=== PATIENT | female | born 1960 | race Caucasian/White ===

== ENCOUNTER 2021-01-24 14:28 | Emergency (ER) | payer BC ==
[2021-01-24] MEDS ORDERED: Hydromorphone 1 mg/ml Injection ONE (14:34)
[2021-01-24] MEDS ORDERED: XYLOCAINE 1% HCL 20 ML MDV ONE (14:34)
[2021-01-24] MEDS ORDERED: ZOFRAN ODT 4 MG ONE (14:34)
[2021-01-24] MEDS ORDERED: Hydromorphone 1 mg/ml Injection IV ONE (14:36)
--- NOTE | 2021-01-24 14:36 | ERPHSYRPT ---
- History of Present Illness Time Seen by Provider: 01/24/21 14:33 Source: patient Exam Limitations: no limitations Physician History: This is a right-handed 60-year-old white female who presents with obvious dislocation of the left middle finger. Patient was walking her dog was pulled she fell and injured her left middle and has pain in the left ring finger Occurred: just prior to arrival Reason for Fall: fell from standing pos (Walking her dog) Injuries/Pain Location: upper extremity (Left hand) Loss of Consciousness: no loss of consciousness Quality: aching Severity of Pain-Max: moderate Severity of Pain-Current: moderate Modifying Factors: Improves With: movement Associated Symptoms (Fall): extremity injury (left middle finger and ring finger) Allergies/Adverse Reactions: doxycycline Allergy (Verified 01/24/21 14:46) Penicillins Allergy (Verified 01/24/21 14:46) Sulfa (Sulfonamide Antibiotics) Allergy (Verified 01/24/21 14:46) Hx Tetanus, Diphtheria Vaccination/Date Given: No Hx Influenza Vaccination/Date Given: Yes Hx Pneumococcal Vaccination/Date Given: No Travel Risk - International Travel Have you traveled outside of the country in past 3 weeks: No - Coronavirus Screening Are you exhibiting any of the following symptoms?: No Close contact with a COVID-19 positive Pt in past 14-21 Days: No - Review of Systems Constitutional: No Symptoms Eyes: No Symptoms Ears, Nose, & Throat: No Symptoms Respiratory: No Symptoms Cardiac: No Symptoms Abdominal/Gastrointestinal: No Symptoms Genitourinary Symptoms: No Symptoms Musculoskeletal: Deformity (left middle finger), Fall, Injury Skin: Other (abrasions) Neurological: No Symptoms Psychological: No Symptoms Endocrine: No Symptoms Hematologic/Lymphatic: No Symptoms Immunological/Allergic: No Symptoms All Other Systems: Reviewed and Negative - Past Medical History Pertinent Past Medical History: No - Past Surgical History Past Surgical History: Yes Other Surgical History: cataracts - Social History Smoking Status: Never smoker Exposure to second hand smoke: No Drug Use: none Patient Lives Alone: No - Nursing Vital Signs Nursing Vital Signs: Initial Vital Signs Temperature 99.7 F 01/24/21 14:49 Pulse Rate 117 H 01/24/21 14:49 Respiratory Rate 21 01/24/21 14:49 Blood Pressure 155/81 01/24/21 14:49 O2 Sat by Pulse Oximetry 100 01/24/21 14:49 Pain Scale Pain Intensity 10 - Celso Coma Score Best Eye Response (Celso): (4) open spontaneously - Physical Exam General Appearance: no apparent distress, alert Head Injury: no evidence of injury Eye Exam: PERRL/EOMI, eyes nml inspection ENT Exam: airway nml Neck Exam: supple, trachea midline, full range of motion, normal alignment, normal inspection Respiratory/Chest Exam: No chest tenderness, No respiratory distress Cardiovascular Exam: normal heart sounds, regular rate/rhythm, normal peripheral pulses Gastrointestinal Exam: soft, normal bowel sounds, No tenderness Rectal Exam: not done Back Exam: normal inspection, normal range of motion, No CVA tenderness, No vertebral tenderness Extremity Exam: deformities (left middle finger abrasions), evidence of injury Neurologic Exam: alert, oriented x 3, cooperative, 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 Left ring finger) SpO2 Interpretation: normal O2 Delivery: Room Air - Course Nursing assessment & vital signs reviewed: Yes Ordered Tests: Active Orders 24 hr Category Date Time Status IV Insertion STAT Care 01/24/21 14:36 Active Wound Care STAT Care 01/24/21 14:55 Active HAND (2 VIEW) Routine Exams 01/24/21 15:07 Taken HAND (2 VIEW) Stat Exams 01/24/21 14:45 Completed Medication Summary Discontinued Medications Generic Name Dose Route Start Last Admin Trade Name Freq PRN Reason Stop Dose Admin Bacitracin Zinc 0.9 gm 01/24/21 14:56 01/24/21 15:08 Baciguent Packet TP 01/24/21 14:57 0.9 gm STAT ONE Administration Bacitracin Zinc Confirm 01/24/21 15:08 Baciguent Packet Administered 01/24/21 15:09 Dose 1 gm .ROUTE .STK-MED ONE Cephalexin HCl 500 mg 01/24/21 14:55 01/24/21 15:06 Keflex 500 Mg PO 01/24/21 14:56 500 mg STAT ONE Administration Cephalexin HCl Confirm 01/24/21 15:05 Keflex 500 Mg Administered 01/24/21 15:06 Dose 500 mg .ROUTE .STK-MED ONE Diphtheria/Tetanus/Acell Pertussis 0.5 ml 01/24/21 14:55 01/24/21 15:06 Adacel Vial IM 01/24/21 14:56 0.5 ml .ONCE ONE Administration Diphtheria/Tetanus/Acell Pertussis Confirm 01/24/21 15:05 Adacel Vial Administered 01/24/21 15:06 Dose 0.5 ml IM .STK-MED ONE Hydromorphone HCl Confirm 01/24/21 14:34 Hydromorphone 1 Mg/Ml Injection Administered 01/24/21 14:35 Dose 1 mg .ROUTE .STK-MED ONE Hydromorphone HCl 1 mg 01/24/21 14:36 01/24/21 15:03 Hydromorphone 1 Mg/Ml Injection IV 01/24/21 14:37 1 mg STAT ONE Administration Lidocaine HCl Confirm 01/24/21 14:34 Xylocaine 1% Hcl 20 Ml Mdv Administered 01/24/21 14:35 Dose 5 ml .ROUTE .STK-MED ONE Lidocaine HCl 5 ml 01/24/21 14:37 01/24/21 15:03 Xylocaine 1% Hcl 20 Ml Mdv IJ 01/24/21 14:38 5 ml STAT ONE Administration Ondansetron HCl Confirm 01/24/21 14:34 Zofran Odt 4 Mg Administered 01/24/21 14:35 Dose 4 mg .ROUTE .STK-MED ONE Ondansetron HCl 4 mg 01/24/21 14:37 01/24/21 15:03 Zofran Odt 4 Mg PO 01/24/21 14:38 4 mg STAT ONE Administration - Progress Progress: improved, pain not gone completely, re-examined Counseled pt/family regarding: diagnosis, need for follow-up, rad results - Departure Departure Disposition: Home Clinical Impression: Dislocation of left middle finger, Nondisplaced fracture of fifth metacarpal bone of left hand, Fracture of proximal phalanx of left hand Condition: Stable Critical Care Time: No Referrals: LANA HUBER NP [Primary Care Provider] - [facility]-Ortho M-F [id number] Additional Instructions: Ice pack to area 3 times a day for 48 hours. Keep the current bandage in place for 24 hours. After 24 hours may remove the bandage wash the site daily with soap and water and apply antibiotic ointment to the abrasion areas. After applying the antibiotic ointment, apply bandages to sites. Continue to splint your left middle and ring finger every day after washing, cleaning, application of antibiotic ointment and bandaging. Wear your splint over the weekend and follow-up with the [facility] orthopedic clinic on 01/27/2021 at 8 AM Prescriptions: Hydrocodone/APAP 5/325 [[place] 5/325 mg] 1 each PO Q8H PRN PRN #9 tablet MDD 3 PRN Reason: Pain Cephalexin Mh 500 mg [Keflex 500 mg] 500 mg PO TID #21 capsule
[2021-01-24] MEDS ORDERED: XYLOCAINE 1% HCL 20 ML MDV IJ ONE (14:37)
[2021-01-24] MEDS ORDERED: ZOFRAN ODT 4 MG PO ONE (14:37)
[2021-01-24] MEDS ORDERED: KEFLEX 500 MG PO ONE (14:55)
[2021-01-24] MEDS ORDERED: Adacel Vial IM ONE ×2 (14:55→15:05)
[2021-01-24] MEDS ORDERED: BACIGUENT PACKET TP ONE (14:56)
[2021-01-24] MEDS ORDERED: KEFLEX 500 MG ONE (15:05)
[2021-01-24] MEDS ORDERED: BACIGUENT PACKET ONE (15:08)
--- NOTE | 2021-01-24 15:21 | XRAY ---
Indication: Postreduction. Comparison: Taken earlier in the day. 2 view left hand demonstrates successful reduction of the 3rd PIP dislocation with new tiny minimally displaced avulsion fracture base of middle phalanx anteriorly. Stable osteopenia and nondisplaced fractures of the 5th metacarpal/4th proximal phalanx.
[2021-01-24 16:16] VITALS: BP 124/71; PULSE 84; O2SAT 96
--- NOTE | 2021-01-27 13:29 | XRAY ---
Indication: Third finger dislocation following fall. Comparison: None 2 view left hand demonstrates 3rd PIP dislocation posterior medially with soft tissue swelling. Also nondisplaced fractures shaft distal 5th metacarpal and base 4th proximal phalanx. Incidental osteopenia and moderate degenerative changes base 1st metacarpal.
== END 2021-01-24 17:37 | disposition home or self-care (01) ==
LOC: ED 14:28
DX: S63.253A Unspecified dislocation of left middle finger, initial encounter (principal); S62.307A Unspecified fracture of fifth metacarpal bone, left hand, initial encounter for closed fracture; S60.413A Abrasion of left middle finger, initial encounter; X50.9XXA Other and unspecified overexertion or strenuous movements or postures, initial encounter; Y93.K1 Activity, walking an animal
CPT/HCPCS: 29125; 36000; 73120; 90471; 90715; 96372; 96374; 99284; J1170; Q0162; A9270-GY